=== PATIENT | female | born 1990 | race Caucasian/White ===

== ENCOUNTER 2020-04-15 09:52 | Emergency (ER) | payer SELFPAY ==
[2020-04-15] MEDS: cefTRIAXone 1 GM Vial IM ONE (10:40)
--- NOTE | 2020-04-15 10:40 | EDM.PDOC ---
ED HPI GENERAL MEDICAL PROBLEM - General Chief Complaint: Upper Extremity Injury/Pain Stated Complaint: LEFT ARM PAIN Time Seen by Provider: 04/15/20 10:26 Source of Information: Reports: Patient History Limitations: Reports: No Limitations - History of Present Illness INITIAL COMMENTS - FREE TEXT/NARRATIVE: Patient presents with left axillary and arm pain. Last night while in [place], she was found to have an axillary abscess which was drained. She was given an antibiotic (not sure the name) Rx but she hasn't been able to fill it yet. She and her SO are on their way through and plan to get home to [facility]. left axilla Pain Score (Numeric/FACES): 9 - Related Data Allergies Allergy/AdvReac Type Severity Reaction Status Date / Time No Known Allergies Allergy Verified 04/15/20 10:04 Home Meds: Home Meds . [No Known Home Meds] 04/15/20 [History] Past Medical History - Past Health History Medical/Surgical History: Denies Medical/Surgical History Social & Family History - Family History Family Medical History: Noncontributory - Tobacco Use Smoking Status *Q: Current Every Day Smoker Years of Tobacco use: 10 Packs/Tins Daily: 0.5 Second Hand Smoke Exposure: Yes - Caffeine Use Caffeine Use: Reports: None - Recreational Drug Use Recreational Drug Use: No Review of Systems - Review of Systems Review Of Systems: See Below Constitutional: Denies: Chills, Fever Eyes: Denies: Vision Change Ears: Denies: Dizziness Nose: Denies: Pain, Bloody Discharge Mouth/Throat: Denies: Bleeding, Hoarse Voice Respiratory: Denies: Shortness of Breath, Cough Cardiovascular: Denies: Chest Pain, Syncope GI/Abdominal: Denies: Abdominal Pain, Nausea, Vomiting Genitourinary: Denies: Dysuria Musculoskeletal: Reports: Arm Pain. Denies: Neck Pain, Shoulder Pain, Back Pain, Hand Pain Skin: Denies: Cyanosis, Jaundice, Mottled, Pallor, Diaphoresis Neurological: Denies: Confusion, Dizziness, Seizure, Syncope, Trouble Speaking, Difficulty Walking Psychiatric: Denies: Confusion ED EXAM, GENERAL - Physical Exam Exam: See Below Exam Limited By: No Limitations General Appearance: Alert, WD/WN, No Apparent Distress Eye Exam: Bilateral Eye: EOMI, Normal Inspection, PERRL Ears: Normal External Exam, Hearing Grossly Normal Nose: Normal Inspection, No Blood Throat/Mouth: Normal Inspection, Normal Lips, Normal Voice, No Airway Compromise Head: Atraumatic, Normocephalic Neck: Normal Inspection, Full Range of Motion Respiratory/Chest: No Respiratory Distress, Lungs Clear, Normal Breath Sounds, No Accessory Muscle Use Cardiovascular: Regular Rate, Rhythm, No Murmur GI/Abdominal: Normal Bowel Sounds, Soft, Non-Tender, No Organomegaly, No Distention, No Abnormal Bruit Back Exam: Normal Inspection, Full Range of Motion. No: CVA Tenderness (L), CVA Tenderness (R) Extremities: Normal Inspection, Normal Range of Motion, Non-Tender Neurological: Alert, Oriented, Normal Cognition, No Motor/Sensory Deficits Psychiatric: Normal Affect, Anxious Skin Exam: Warm, Dry, Other (In the left axilla there is 2x3 cm area of induration, swelling and tenderness. There is mild erythema. Evidence of recent I&D without current draining. Palpation of proximal medial upper arm is tender also.) Course - Vital Signs Last Recorded V/S: Last Vital Signs Temp 96.9 F 04/15/20 10:00 Pulse 113 H 04/15/20 10:00 Resp 16 04/15/20 10:00 BP 130/75 04/15/20 10:00 Pulse Ox 97 04/15/20 10:00 - Orders/Labs/Meds Meds: Medications Discontinued Medications Generic Name Dose Route Start Last Admin Trade Name Freq PRN Reason Stop Dose Admin Ceftriaxone Sodium 1 gm 04/15/20 10:34 Rocephin IM 04/15/20 10:35 ONETIME ONE Ketorolac Tromethamine 60 mg 04/15/20 10:34 Toradol IM 04/15/20 10:35 ONETIME ONE - Re-Assessments/Exams Free Text/Narrative Re-Assessment/Exam: 04/15/20 10:49 I discussed findings, expectations and recommendations with patient. I stressed the importance of getting on the antibiotic. Also discussed that this pain type usually responds well to anti-inflammatories (she admitted that Ibuprofen seemed to work better than Tylenol last night). Toradol and Rocephin given IM. Patient discharged to home in stable condition. Departure - Departure Time of Disposition: 10:35 Disposition: Home, Self-Care 01 Condition: Good Clinical Impression: Cutaneous abscess of left axilla - Discharge Information Instructions: Incision and Drainage, Care After, Skin Abscess, [id number] Referrals: PCP,None [Primary Care Provider] - Additional Instructions: Start your antibiotic as soon as you can get it filled. The antibiotic injection today in the ER will cover you for up to 24 hours but you need to start your antibiotic no later than tomorrow morning. The Toradol injection should provide good pain relief for up to 8 hours. By then the antibiotic should be working and the pain should be less. You can use Tylenol 500-1000 mg three times a day. You can also use Ibuprofen 400-600 mg three times a day but don't start for 12 hours since you were given Toradol now. Follow up with your PCP later this week for recheck. Sooner if worsening or other problems. Sepsis Event Note (ED) - Evaluation Sepsis Screening Result: No Definite Risk - Focused Exam Vital Signs: Vital Signs Temp Pulse Resp BP Pulse Ox 04/15/20 10:00 96.9 F 113 H 16 130/75 97
[2020-04-15] MEDS: Ketorolac 60 MG/2 ML SDV IM ONE (10:45)
== END 2020-04-15 10:45 | disposition home or self-care (01) ==
LOC: KA.ED 09:52
DX: L02.412 Cutaneous abscess of left axilla (principal); F17.210 Nicotine dependence, cigarettes, uncomplicated
CPT/HCPCS: 96372; 99282; 99283; J0696; J1885